=== PATIENT | female | born 1965 | race Caucasian/White ===

== ENCOUNTER 2023-09-05 08:41 | Day surgery (SDC) | payer OTHER ==
[2023-09-04 10:01] VITALS: BMI 28.3
[2023-09-05] MEDS ORDERED: TOBRA 0.3%/DEXAMETH 0.1% OPHTHALMIC SUSP 2.5 ML BTL ONE ×2 (08:52→10:18)
[2023-09-05] MEDS: TOBRA 0.3%/DEXAMETH 0.1% OPHTHALMIC SUSP 2.5 ML BTL OS SCH (09:15)
[2023-09-05] MEDS ORDERED: PHENYLEPHRINE 2.5% OPHTH SOLN 15 ML BOTTLE ONE (10:18)
[2023-09-05] MEDS ORDERED: BACITRACIN/POLYMYXIN OPH OINT 3.5 GM TUBE ONE (10:18)
[2023-09-05] MEDS ORDERED: TOBRAMYCIN 0.3% OPHTH SOLN 5 ML BOTTLE ONE (10:18)
[2023-09-05] MEDS ORDERED: BETAXOLOL HCL 0.25% OPHTHALMIC 10 ML DROPSBTL ONE (10:18)
[2023-09-05] MEDS ORDERED: EPI-SHUGARCAINE (EPINEPHRINE 0.025% & LIDOCAINE-PF 0.75%) 4ML ONE (10:18)
[2023-09-05] MEDS ORDERED: TETRACAINE 0.5% OPHTH SOLN 2 ML BOTTLE ONE (10:19)
[2023-09-05] MEDS ORDERED: NEO/POLYMYX B SULF/DEXAMETH OPHTHALMIC 5ML BOTTLE ONE (10:19)
[2023-09-05] MEDS ORDERED: POVIDONE-IODINE 5% OPHTHALMIC PREP 30 ML SOLUTION ONE (10:19)
[2023-09-05] MEDS ORDERED: LIDOCAINE HCL 2% JELLY 10 ML CARTRIDGE ONE (10:19)
[2023-09-05] MEDS ORDERED: BSS (NA/CA/MG/K) BALANCED SALT SOLUTION OPHTH SOLN 15 ML BOTTLE ONE (10:19)
[2023-09-05] MEDS ORDERED: MIDAZOLAM HCL 2 MG/2 ML SINGLE DOSE VIAL ONE (10:31)
[2023-09-05] MEDS ORDERED: ACETAMINOPHEN 325 MG TABLET (FP) PO PRN (12:27)
[2023-09-05 12:43] VITALS: RESP 18; TEMP 97.7
[2023-09-05 13:03] VITALS: BP 124/71; PULSE 74
== END 2023-09-05 13:07 | disposition home or self-care (01) ==
LOC: FASU 08:41
PROVIDERS: ATTEND Ophthalmology
PROC: 08U107Z Supplement of Left Eye with Autologous Tissue Substitute, Open Approach (ICD-10-PCS; principal; 2023-09-05 10:52)
DX: H11.002 Unspecified pterygium of left eye (principal)
CPT/HCPCS: 88304-TC